=== PATIENT | male | born 1970 | race Caucasian/White ===

== ENCOUNTER 2024-07-22 10:56 | Outpatient (OUT) | payer OTHER, SELFPAY ==
[2024-07-22 11:08] LABS: Basophils Percent Auto 0.8 % (0.2-2.0); Eosinophils Absolute Auto 0.1 10^3/uL (0.0-0.7); Eosinophils Percent Auto 2.4 % (0.9-7.0); Hematocrit 43.8 % (42.0-54.0); Hemoglobin 15.2 g/dL (14.0-18.0); Immature Granulocytes Abs Auto 0.01 10^3/uL (0.00-0.03); Immature Granulocytes Pct Auto 0.2 % (0.0-0.5); Lymphocytes Absolute Auto 1.6 10^3/uL (1.2-3.8); Lymphocytes Percent Auto 30.6 % (20.5-60.0); Mean Corpuscular HGB Conc 34.7 g/dL (29.9-35.2); Mean Corpuscular Hemoglobin 32.1 pg (25.9-34.0); Mean Corpuscular Volume 92.4 fL (80.0-94.0); Mean Platelet Volume 8.8 fL (9.5-13.5); Monocytes Absolute Auto 0.5 10^3/uL (0.3-0.8); Monocytes Percent Auto 10.7 % (1.7-12.0); Neutrophils Absolute Auto 2.8 10^3/uL (1.4-6.5); Neutrophils Percent Auto 55.3 % (43.0-75.0); Platelet Count 307 10^3/uL (150-450); Red Blood Count 4.74 10^6/uL (4.70-6.10); Red Cell Distribution Width 12.2 % (11.0-15.0); White Blood Count 5.1 10^3/uL (4.0-11.0)
[2024-07-22 11:42] LABS: Alanine Aminotransferase 35 U/L (16-63); Albumin Globulin Ratio 1.3; Alkaline Phosphatase 59 U/L (46-116); Anion Gap 9.4; Aspartate Amino Transferase 20 U/L (15-37); BUN Creatinine Ratio 18.9; Carbon Dioxide 30.4 mmol/L (21.0-32.0); Chloride 101 mmol/L (98-107); Estimated GFR (African America >60 (>=60); Estimated GFR (Non-African Ame >60 (>=60); Globulin 3.2 g/dL; Glucose 107 mg/dL (74-106); Potassium 3.8 mmol/L (3.5-5.1); Sodium 137 mmol/L (136-145); Total Protein 7.2 g/dL (6.4-8.2)
== END 2024-07-22 10:57 | disposition home or self-care (01) ==
LOC: LAB 10:56
PROVIDERS: PCP Internal Medicine; Visit Provider Internal Medicine
DX: R53.83 Other fatigue (principal); R00.2 Palpitations; R42 Dizziness and giddiness
CPT/HCPCS: 36415; 80053; 84443; 85025

== ENCOUNTER 2024-07-27 12:30 | Outpatient (OUT) | payer OTHER, SELFPAY ==
--- NOTE | 2024-07-27 12:33 | CT_ITS ---
The [address] [address] Patient Name: DELTA HERNANDEZ MRN: [id number] date: 1970 Sex: M Assigned Patient Location: CT Current Patient Location: CT Accession/Order Number: [id number] Exam Date: 07/27/2024 12:35 Report Date: 07/27/2024 13:22 At the request of: BETTY MONTANA Procedure: CT head/brain wo con EXAM: CT head/brain wo con HISTORY: Pressure in head, Pre Syncope COMPARISON: None. TECHNIQUE: Axial soft tissue and bone windows through the calvarium with coronal and sagittal reformats. CT dose reduction technique was used including Automated Exposure Control. . Findings: The paranasal sinuses and mastoid air cells are well aerated. No air-fluid levels. No extra-axial fluid collection. No intra-axial or extra-axial bleed. No mass effect or midline shift. The escobar-white matter differentiation is preserved. The brain parenchymal volume is age appropriate. The ventricles are nondilated. The basal cisterns are patent. The craniovertebral junction is unremarkable. CT/CT head/brain wo con IMPRESSION: 1. No acute intracranial abnormality. Electronically authenticated by: CARY DE LEÓN Date: 07/27/2024 13:22
--- OUTSIDE RECORDS SUMMARY | 2024-07-27 12:35 | XMS_ITS | CCD ---
Author Organization [facility] Care Team Providers Care Ladies Locker Room Attendant Name Role Phone Cristhian Rivas Primary Care Provider ALMA ROBLES Referring Unavailable BALL, CRISTHIAN Allen Primary Care Unavailable OCTAVIANO, ALMA Referring Unavailable BALL, CRISTHIAN E Primary Care Unavailable OCTAVIANO, ALMA Referring Unavailable BALL, CRISTHIAN E Primary Care Unavailable BALL, CRISTHIAN E Primary Care Unavailable OCTAVIANO, ALMA Referring Unavailable BALL, CRISTHIAN E Primary Care Unavailable OCTAVIANO, ALMA Referring Unavailable BALL, CRISTHIAN Allen Primary Care Unavailable BALL, DR HERNÁNDEZ Admitting Unavailable BALL, DR HERNÁNDEZ Attending Unavailable BALL, DR HERNÁNDEZ Admitting Unavailable BALL, DR HERNÁNDEZ Attending Unavailable BALL, DR HERNÁNDEZ Consulting Unavailable NILL, DR TAYLOR Admitting Unavailable NILL, DR TAYLOR Attending Unavailable BALL, DR HERNÁNDEZ Primary Care Unavailable NILL, DR TAYLOR Consulting Unavailable NILL, DR TAYLOR Admitting Unavailable NILL, DR TAYLOR Attending Unavailable NILL, DR TAYLOR Admitting Unavailable NILL, DR TAYLOR Attending Unavailable BALL, DR HERNÁNDEZ Primary Care Unavailable NILL, DR TAYLOR Consulting Unavailable LONG, JOHN Consulting Unavailable Ball, Cristhian Unavailable Allergies Allergy Classification Reported Allergen(s) Allergy Type Date of Onset Reaction(s) Facility Opioid Agonists (3 sources) Codeine Drug Allergy 5 Other (See Comments) [facility] (9 sources) Codeine Drug Allergy 5 Other (See Comments) [facility] [place], [place] (2 sources) Codeine Drug Allergy [facility] Repository Medications Current Medications Medication Drug Class(es) Dates Sig (Normalized) Sig (Original) benzonatate 200 mg oral capsule (5 sources) Non-narcotic Antitussive Start: 11-13-2022 take 1 capsule by mouth every eight hours etodolac 500 mg oral tablet (4 sources) Nonsteroidal Anti-inflammatory Drug Start: 07-01-2023 take 1 tablet by mouth every twelve hours Etodolac 500 MG 1 tablet with food Orally Twice a day for 30 days Jun, Active valACYclovir 500 mg oral tablet (8 sources) Herpesvirus Nucleoside Analog DNA Polymerase Inhibitor, Herpes Simplex Virus Nucleoside Analog DNA Polymerase Inhibitor, Herpes Zoster Virus Nucleoside Analog DNA Polymerase Inhibitor Start: 02-26-2024 End: 06-29-2024 take 1 tablet by mouth once daily Valacyclovir Active 0 .ROUTE .COMPLEX June 29, 2024 11:19am Take 1 tablet by mouth once daily Start: 02-26-2024 End: 02-26-2024 take 500 mg by mouth once daily Valacyclovir Discontin ued 500 MG PO Daily February 26, 2024 12:00am February 26, 2024 4:49pm take 1 tablet by kelly once daily valACYclovir HCl 500 MG Take 1 tablet by mouth once daily Active {20 (nirmatrelvir 150 MG Ora l Tablet) / 10 (ritonavir 100 MG Oral Tablet) } Pack [Paxlovid 5-Day] (5 sources) Start: 11-13-2022 take 3 tablets by [facility] every twelve hours Completed/Discontinued Medications Medication Drug Class(es) Dates Sig (Normalized) Sig (Original) azithromycin 250 mg oral tablet (5 sources) Macrolide Antimicrobial Start: 02-11-2023 Azithromycin 250 MG as directed Orally daily for 5 days Jan, Not-Taking predniSONE 20 mg oral tablet (5 sources) Start: 02-11-2023 predniSONE 20 MG 1 tablet Orally tid w/ food x 3 days, then bid w/ food x 3 days, then qd w/ food x 3 days for 9 Jan, Not-Taking Problems Active Problems Problem Classification Problem Date Documented Da te Episodic/Chronic Abdominal hernia (9 sources) Unilateral inguinal hernia, without obstruction or gangrene, not specified as recurrent; Translations: [Inguinal hernia] Onset: 12-04-2021 Episodic Abdominal pain (5 sources) Left upper quadrant pain; Translations: [Left upper quadrant pain] Episodic Acute bronchitis (1 source) Acute bronchitis due to other specified organisms Episodic Administrative/social admission (6 sources) Patient encounter status; Translations: [Encounter for pre-employment examination] Episodic Allergic reactions (6 sources) Allergic contact dermatitis due to plants, except food; Translations: [Allergic contact dermatitis due to plants, except food] Episodic Cardiac dysrhythmias (1 source) Palpitations; Translations: [Palpitations] 07-21-2024 Episodic Conditions associated with dizziness or vertigo (1 source) Lightheadedness; Translations: [Dizziness and giddiness] 07-21-2024 Episodic Malaise and fatigue (1 source) Fatigue; Translations: [Other fatigue] 07-21-2024 Episodic Other ear and sense organ disorders (5 sources) Impacted cerumen; Translations: [Impacted cerumen, bilateral] Episodic Other nutritional; endocrine; and metabolic disorders (5 sources) Overweight; Translations: [Overweight] Episodic Other screening for suspected conditions (not mental disorders or infectious disease) (3 sources) Encounter for screening for malignant neoplasm of colon; Translations: [Special screening for malignant neoplasms of colon] Episodic Sprains and strains (2 sources) Sprain of right rotator cuff capsule, initial encounter Episodic Unclassified (4 sources) CONTACT W/AND (SUSP) EXPOS COVID-19; Translations: [CONTACT W/AND (SUSP) EXPOS COVID-19] Onset: 09-12-2021 Viral infection (7 sources) Herpes simplex type 2 infection; Translations: [Herpesviral infection, unspecified] Episodic Past or Other Problems Problem Classification Problem Date Documented Da te Episodic/Chronic Other and unspecified benign neoplasm (1 source) Benign lipomatous neoplasm of spermatic cord; 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] Onset: 12-11-2021 Episodic Unclassified (1 source) CONTACT W/AND (SUSP) EXPOS COVID-19; Translations: [CONTACT W/AND (SUSP) EXPOS COVID-19] Onset: 09-06-2021 Results Test Name Value Interpretation Reference Range Facility Basophils Auto (Bld) [#/Vol] on 07-22-2024 Basophils (Bld) [#/Vol] 0.0 10 3/uL 0.0-0.1 [facility] Basophils/100 WBC Auto (Bld) on 07-22-2024 Basophils/100 WBC (Bld) 0.8 % 0.2-2.0 [facility] Eosinophils/100 WBC Auto (Bl d)on 07-22-2024 Eosinophils/100 WBC (Bld) 2.4 % 0.9-7.0 [facility] Erythrocyte distribution wid th Auto (RBC) [Ratio]on 07-22-2024 Erythrocyte distribution width (RBC) [Ratio] 12.2 % 11.0-15.0 [facility] Estimated glomerular filtrat ion rate (GFR) non- Americanon 07-22-2024 GFR/1.73 sq M.predicted among non-blacks MDRD (S/P/Bld) [Vol rate/Area] mL/min/{1.73_m2} >=60 [facility] Globulin Calc (S) [Mass/Vol] on 07-22-2024 Globulin (S) [Mass/Vol] 3.2 g/dL [facility] Hematocrit Auto (Bld) [Volum e fraction]on 07-22-2024 Hematocrit (Bld) [Volume fraction] 43.8 % 42.0-54.0 [facility] Hemoglobin [Mass/volume] in Bloodon 07-22-2024 Hemoglobin (Bld) [Mass/Vol] 15.2 g/dL 14.0-18.0 [facility] Laboratory - Chemistry and C hemistry - challengeon 07-22-2024 Albumin [Mass/Vol] 4.0 g/dL 3.4-5.0 [facility] ALP [Catalytic activity/Vol] 59 U/L 46-116 [facility] ALT [Catalytic activity/Vol] 35 U/L 16-63 [facility] AST [Catalytic activity/Vol] 20 U/L 15-37 [facility] Bilirubin [Mass/Vol] 1.0 mg/dL 0.2-1.0 [facility] Calcium [Mass/Vol] 9.0 mg/dL 8.5-10.1 [facility] Chloride [Moles/Vol] 101 mmol/L 98-107 [facility] CO2 [Moles/Vol] 30.4 mmol/L 21.0-32.0 [facility] Creatinine [Mass/Vol] 0.95 mg/dL 0.70-1.30 [facility] GFR/1.73 sq M.predicted MDRD (S/P/Bld) [Vol rate/Area] mL/min/{1.73_m2} >=60 [facility] Glucose [Mass/Vol] 107 mg/dL High 74-106 [facility] Potassium [Moles/Vol] 3.8 mmol/L 3.5-5.1 [facility] Protein [Mass/Vol] 7.2 g/dL 6.4-8.2 [facility] Sodium [Moles/Vol] 137 mmol/L 136-145 [facility] TSH Qn 1.190 m[IU]/L 0.358-3.740 [facility] Urea nitrogen [Mass/Vol] 18.0 mg/dL 7.0-18.0 [facility] Urea nitrogen/Creatinine [Mass ratio] 18.9 mg/mg [facility] Laboratory - Hematology and Cell countson 07-22-2024 Immature granulocytes/100 WBC (Bld) 0.2 % 0.0-0.5 [facility] Leukocytes [#/volume] correc kimber for nucleated erythrocytes in Blood by Automated counon 07-22-2024 WBC corrected for nucl RBC Auto (Bld) [#/Vol] 5.1 10 3/uL 4.0-11.0 [facility] Lymphocytes Auto (Bld) [#/Vo l]on 07-22-2024 Lymphocytes (Bld) [#/Vol] 1.6 10 3/uL 1.2-3.8 [facility] Lymphocytes/100 WBC Auto (Bl d)on 07-22-2024 Lymphocytes/100 WBC (Bld) 30.6 % 20.5-60.0 [facility] MCH Auto (RBC) [Entitic mass ]on 07-22-2024 MCH (RBC) [Entitic mass] 32.1 pg 25.9-34.0 [facility] MCHC Auto (RBC) [Mass/Vol]on 07-22-2024 MCHC (RBC) [Mass/Vol] 34.7 g/dL 29.9-35.2 [facility] MCV Auto (RBC) [Entitic vol] on 07-22-2024 MCV (RBC) [Entitic vol] 92.4 fL 80.0-94.0 [facility] Monocytes Auto (Bld) [#/Vol] on 07-22-2024 Monocytes (Bld) [#/Vol] 0.5 10 3/uL 0.3-0.8 [facility] Monocytes/100 WBC Auto (Bld) on 07-22-2024 Monocytes/100 WBC (Bld) 10.7 % 1.7-12.0 [facility] Neutrophils Auto (Bld) [#/Vo l]on 07-22-2024 Neutrophils (Bld) [#/Vol] 2.8 10 3/uL 1.4-6.5 [facility] Neutrophils/100 WBC Auto (Bl d)on 07-22-2024 Neutrophils/100 WBC (Bld) 55.3 % 43.0-75.0 [facility] No Panel Informationon 07-22 Eosinophils # (Auto) 0.1 10 3/uL 0.0-0.7 [facility] Immature Granulocyte # (Auto) 0.01 10 3/uL 0.00-0.03 [facility] Platelet mean volume Auto (B ld) [Entitic vol]on 07-22-2024 Platelet mean volume (Bld) [Entitic vol] 8.8 fL Low 9.5-13.5 [facility] Platelets Auto (Bld) [#/Vol] on 07-22-2024 Platelets (Bld) [#/Vol] 307 10 3/uL 150-450 [facility] RBC Auto (Bld) [#/Vol]on RBC (Bld) [#/Vol] 4.74 10 6/uL 4.70-6.10 [facility] Serum or plasma albumin/glob ulin mass ratioon 07-22-2024 Albumin/Globulin [Mass ratio] 1.3 {ratio} [facility] Serum or plasma anion gap de terminationon 07-22-2024 Anion gap [Moles/Vol] 9.4 mmol/L [facility] Physician Referralon 023 Physician Referral [id number]: 127 Normal [facility] Lipid Profileon 02-11-2022 Cholesterol [Mass/Vol] 181 mg/dL Normal <200 [facility] Comment on above: Result Comment: Cholesterol Guidelines: <200 Desirable 200-240 Borderline >240 Undesirable Performed By: #### C BC, CP, OBN #### [facility] [address] [place] [address] [place] [address] [employer]: Eddie Jones MD #### PSAS, LIPR #### [id number] [place] [address] [employer] Operator: Josh Brown MD Cholesterol in HDL [Mass/Vol] 77 mg/dL Normal >40 [facility] Comment on above: Result Comment: HDL Guidelines: <40 Undesirable 40-59 Borderline >59 Desirable Performed By: #### Juli oCesar MILES CP, OBN #### [facility] [address] [place] [address] [place] [address] [employer] Operator: Eddie Jones MD #### PSAMinerva, LIPR #### [address] [address] [employer] Operator: Josh Brown MD Cholesterol in LDL [Mass/Vol] 96 mg/dL Normal 0-130 [facility] Comment on above: Result Comment: LDL Guidelines: <100 Desirable 100-129 Near to/above Desirable 130-159 Borderline >159 Undesirable Direct (measured) LDL and calculated LDL are not interchangeable tests. Performed By: #### Julio Cesar MILES CP, OBN #### [address] [place] [address] [employer] Operator: Eddie Jones MD #### PSAMinerva, LIPR #### [address] [address] [employer] Operator: Josh Brown MD Cholesterol.total/Ch olesterol in HDL [Mass ratio] 2.4 {ratio} Normal <5 [facility] Comment on above: Performed By: #### Julio Cesar MILES CP, OBN #### [address] [place], [place] [phone] [employer] Operator: Eddie Jones MD #### PSAMinerva, LIPR #### [address] [id number] [employer] Operator: Josh Brown MD Triglyceride [Mass/Vol] 42 mg/dL Normal <150 [facility] Comment on above: Result Comment: Triglyceride Guidelines: <150 Desirable 150-199 Borderline 200-499 High >499 Very high Based on AHA Guidelines for fasting triglyceride, July 2012. Performed By: #### Julio Cesar MILES CP, OBN #### [facility] [address] [place] [address] [address] [place], [place] [phone] [employer] Operator: Eddie Jones MD #### PSAS, LIPR #### [facility] [place], [place] [phone] [employer] Operator: Josh Brown MD PSA, Screeningon 02-11-2022 Prostatic Spec. Ag 0.65 ug/L Normal <4.1 [facility] Comment on above: Result Comment: The [employer] ECLIA assay is used. Results obtained with different assay methods cannot be used interchangeably. Performed By: #### Julio Cesar MILES CP, OBN #### [address] [place] [place] [address] [employer] Operator: Eddie Jones MD #### PSAMinerva, LIPR #### [facility] [place] [address] [employer] Operator: Josh Brown MD CBCon 02-10-2022 Erythrocyte distribution width (RBC) [Ratio] 12.8 % Normal 11.8-14.4 [facility] Comment on above: Performed By: #### Julio Cesar MIELS CP, OBN #### [facility] [address] [place] [address] [place], [place] [phone] [employer] Operator: Eddie Jones MD #### PSAS, LIPR #### [facility] [place] [address] [employer] Operator: Josh Brown MD Hematocrit (Bld) [Volume fraction] 45.3 % Normal 40.7-50.3 [facility] Comment on above: Performed By: #### C BC, CP, OBN #### [address] [place], [place] [phone] [employer] Operator: Eddie Jones MD #### PSAS, LIPR #### [address] [phone] [employer] Operator: Josh Brown MD Hemoglobin (Bld) [Mass/Vol] 15.0 g/dL Normal 13.0-17.0 [facility] Comment on above: Performed By: #### C GINGER CP, OBN #### [address] [place] [address] [employer] Operator: Eddie Jones MD #### PSAMinerva, LIPR #### [address] [id number] [employer] Operator: Josh Brown MD MCH (RBC) [Entitic mass] 31.2 pg Normal 25.2-33.5 [facility] Comment on above: Performed By: #### C MADDIE MILES, OBN #### [address] [place] [address] [employer] Operator: Eddie Jones MD #### PSAMinerva, LIPR #### [address] [phone] [employer] Operator: Josh Brown MD MCHC (RBC) [Mass/Vol] 33.1 g/dL Normal 28.4-34.8 [facility] Comment on above: Performed By: #### C MADDIE MILES, OBN #### [address] [place] [address] [employer] Operator: Eddie Jones MD #### PSAS, LIPR #### [address] [place], [place] [phone] [employer] Operator: Josh Brown MD MCV (RBC) [Entitic vol] 94.2 fL Normal 82.6-102.9 [facility] Comment on above: Performed By: #### C BC, CP, OBN #### [facility] [address] [place] [id number] [employer] Operator: Eddie Jones MD #### PSAS, LIPR #### [address] [address] [employer] Operator: Josh Brown MD NRBC Automated 0.0 per 100 WBC Normal 0.0 [facility] Comment on above: Performed By: #### C GINGER, CP, OBN #### [address] [place] [id number] [employer] Operator: Eddie Jones MD #### PSAS, LIPR #### [address] [phone] [employer] Operator: Josh Brown MD Platelet mean volume (Bld) [Entitic vol] 9.4 fL Normal 8.1-13.5 [facility] Comment on above: Performed By: #### C GINGER CP, OBN #### [address] [place] [id number] [employer] Operator: Eddie Jones MD #### PSAS, LIPR #### [address] [phone] [employer] Operator: Josh Brown MD Platelets (Bld) [#/Vol] 309 10*3/uL Normal 138-453 [facility] Comment on above: Performed By: #### C GINGER CP, OBN #### [facility] [address] [place] [address] [address], [place] [phone] [employer] Operator: Eddie Jones MD #### PSAS, LIPR #### [address] [address] [employer] Operator: Josh Brown MD RBC (Bld) [#/Vol] 4.81 10*6/uL Normal 4.21-5.77 [facility] Comment on above: Performed By: #### C MADDIE MILES, OBN #### [address] [place] [address] [employer] Operator: Eddie Jones MD #### OSWALDO, LIPR #### [address] [place], [place] [phone] [employer] Operator: Josh Brown MD WBC (Bld) [#/Vol] 4.4 10*3/uL Normal 3.5-11.3 [facility] Comment on above: Performed By: #### C MADDIE MILES, OBN #### [address] [place] [address] [employer] Operator: Eddie Jones MD #### OSWALDO, LIPR #### [address] [place], [place] [phone] [employer] Operator: Josh Brown MD Comp Metabolic Profon 2021 (cont.) [facility] Comment on above: Result Comment: Aver age GFR for 40-49 years old: 99 mL/min/1.73sq m Chronic Kidney Disease: <60 mL/min/1.73sq m Kidney failure: <15 mL/min/1.73sq m eGFR calculated using average adult body mass. Additional eGFR calculator available at: http://[email or web address]_crcl_[email or web address].htm Performed By: #### C MADDIE MILES, OBN #### [address] [place] [address] [employer] Operator: Eddie Jones MD #### PSAMinerva, LIPR #### [facility] [address] [place], [place] [phone] [employer] Operator: Josh Brown MD Albumin [Mass/Vol] 4.8 g/dL Normal 3.5-5.2 [facility] Comment on above: Performed By: #### C MADDIE MILES, OBN #### [facility] [address] [place], [place] [phone] [employer] Operator: Eddie Jones MD #### PSAMinerva, LIPR #### [address] [place], [place] [phone] [employer] Operator: Josh Brown MD Albumin/Glob Ratio 1.8 Normal 1.0-2.5 [facility] Comment on above: Performed By: #### C MADDIE MILES, OBN #### [facility] [address] [place], [place] [phone] [employer] Operator: Eddie Jones MD #### OSWALDO, LIPR #### [address] [phone] [employer] Operator: Josh Brown MD Alkaline Phos 67 U/L Normal 40-129 [facility] Comment on above: Performed By: #### Julio Cesar MILES CP, OBN #### [facility] [address] [place], [place] 255[address] [employer] Operator: Eddie Jones MD #### OSWALDO, LIPR #### [address] [address] [employer] Operator: Josh Brown MD ALT [Catalytic activity/Vol] 24 U/L Normal 5-41 [facility] Comment on above: Performed By: #### Julio Cesar MILES CP, OBN #### [facility] [address] [place], [place] [phone] [employer] Operator: Eddie Jones MD #### PSAS, LIPR #### [address] [place] [address] [employer] Operator: Josh Brown MD Anion gap [Moles/Vol] 9 mmol/L Normal 9-17 [facility] Comment on above: Performed By: #### Julio Cesar MILES CP, OBN #### [facility] [address] [place], [place] [address] [employer] Operator: Eddie Jones MD #### PSAMinerva, LIPR #### [address] [phone] [employer] Operator: Josh Brown MD AST [Catalytic activity/Vol] 22 U/L Normal <40 [facility] Comment on above: Performed By: #### Julio Cesar MILES CP, OBN #### [facility] [address] [place], [place] 567[address]83 [employer] Operator: Eddie Jones MD #### OSWALDO, LIPR #### [address] [place], [place] 6628[address] [employer] Operator: Josh Brown MD Bilirubin [Mass/Vol] 0.41 mg/dL Normal 0.3-1.2 [facility] Comment on above: Performed By: #### Julio Cesar MILES CP, OBN #### [address] [place], [place] [phone] [employer] Operator: Eddie Jones MD #### OSWALDO, LIPR #### [address] [address] [employer] Operator: Josh Brown MD BUN/CRE Ratio 13 Normal 9-20 [facility] Comment on above: Performed By: #### Julio Cesar MILES CP, OBN #### [facility] [address] [place] [address] [address] [place], [place] [phone] [employer] Operator: Eddie Jones MD #### PSAS, LIPR #### [address] [address] [employer] Operator: Josh Brown MD Calcium [Mass/Vol] 9.5 mg/dL Normal 8.6-10.4 [facility] Comment on above: Performed By: #### Julio Cesar MILES CP, OBN #### [facility] [address] [place] [address] [place] [address] [employer] Operator: Eddie Jones MD #### PSAS, LIPR #### [address] [place], [place] [phone] [employer] Operator: Josh Brown MD Chloride [Moles/Vol] 100 mmol/L Normal 98-107 [facility] Comment on above: Performed By: #### C MADDIE MILES, OBN #### [facility] [address] [place] [address] [place] [address] [employer] Operator: Eddie Jones MD #### PSAS, LIPR #### [address] [phone] [employer] Operator: Josh Brown MD CO2 [Moles/Vol] 29 mmol/L Normal 20-31 [facility] Comment on above: Performed By: #### Julio Cesar IMLES CP, OBN #### [facility] [address] [place] [address] [place] [phone] [employer] Operator: Eddie Jones MD #### PSAS, LIPR #### [address] [phone] [employer] Operator: Josh Brown MD Creatinine [Mass/Vol] 0.90 mg/dL Normal 0.70-1.20 [facility] Comment on above: Performed By: #### Julio Cesar MILES CP, OBN #### [facility] [address] [place] [address] [place] [address] [employer] Operator: Eddie Jones MD #### PSAS, LIPR #### [address] [phone] [employer] Operator: Josh Brown MD GFR, Amer >60 Normal >60 [facility] Comment on above: Performed By: #### C GINGER CP, OBN #### [facility] [address] [place] [address] [place] [address] [employer] Operator: Eddie Jones MD #### PSAS, LIPR #### [facility] [address] [place], [place] [phone] [employer] Operator: Josh Brown MD GFR,non Amer >60 Normal >60 [facility] Comment on above: Performed By: #### C BC, CP, OBN #### [facility] [address] [place] [address] [place] [address] [employer] Operator: Eddie Jones MD #### PSAS, LIPR #### [address] [place], [place] [phone] [employer] Operator: Josh Brown MD Glucose [Mass/Vol] 97 mg/dL Normal 70-99 [facility] Comment on above: Performed By: #### C BC, CP, OBN #### [address] [place] [id number] [employer] Operator: Eddie Jones MD #### PSAS, LIPR #### [address] [phone] [employer] Operator: Josh Brown MD Potassium [Moles/Vol] 4.4 mmol/L Normal 3.7-5.3 [facility] Comment on above: Performed By: #### C BC, CP, OBN #### [address] [place] [address] [employer]: Eddie Jones MD #### PSAS, LIPR #### [address] [place], [place] [id number] [employer]: Josh Brown MD Protein [Mass/Vol] 7.5 g/dL Normal 6.4-8.3 [facility] Comment on above: Performed By: #### C BC, CP, OBN #### [facility] [address] [place] [address] [place] [address] [employer] Operator: Eddie Jones MD #### PSAS, LIPR #### [address] [place], [place] [id number] [employer] Operator: Josh Brown MD Sodium [Moles/Vol] 138 mmol/L Normal 135-144 [facility] Comment on above: Performed By: #### C MADDIE MILES, OBN #### [address] [place] [address] [employer] Operator: Eddie Jones MD #### PSAS, LIPR #### [address] [id number] [employer] Operator: Josh Brown MD Staging: Normal [facility] Comment on above: Result Comment: Stag e 1: Some kidney damage normal GFR Stage 2: Mild kidney damage GFR 60-89 Stage 3: Moderate kidney damage GFR 30-59 Stage 4: Severe kidney damage GFR 15-29 Stage 5: Severe kidney damage GFR <15 ESRD - chronic treatment by dialysis or transplant Performed By: #### Julio Cesar MILES CP, OBN #### [address] [place] [address] [employer] Operator: Eddie Jones MD #### PSAS, LIPR #### [address] [id number] [employer] Operator: Josh Brown MD Urea nitrogen [Mass/Vol] 12 mg/dL Normal 6-20 [facility] Comment on above: Performed By: #### C MADDIE MILES, OBN #### [address] [place] [address] [employer] Operator: Eddie Jones MD #### PSAS, LIPR #### [address] [id number] [employer] Operator: Josh Brown MD EKG 12 LeadOrdered By: Arthur Raines on 02-10-2022 Atrial Rate 56 BPM [facility] Work Phone: P [place] 61 degrees [employer] Work Phone: P-R Interval 154 ms [employer] Work Phone: Q-T Interval 452 ms [employer] Work Phone: QRS Duration 100 ms [employer] Work Phone: QTc Calculation (Bazett) 436 ms [employer] Work Phone: R [place] 39 degrees [employer] Work Phone: T [place] 37 degrees [employer] Work Phone: Ventricular Rate 56 BPM [employer] Work Phone: [employer] Work Phone: EKG 12 Leadon 02-10-2022 Sinus bradycardia Possible Left atrial enlargement Borderline ECG When compared with ECG of 14-MAR-2021 08:48, No significant change was found Confirmed by JADON RAINES ([id number]) on 02/10/2022 12:59:34 PM [facility] Jadon Raines MD - 02/10/2022 Sinus bradycardia Possible Left atrial enlargement Borderline ECG When compared with ECG of 14-MAR-2021 08:48, No significant change was found Confirmed by JADON RAINES ([id number]) on 02/10/2022 12:59:34 PM [employer] Work Phone: Occult Blood, Fecalon 2021 Occult Blood 1 Negative Normal NEG [facility] in Hospital Comment on above: Performed By: #### C MADDIE MILES, OBN #### [facility] [address] [place] [address] [employer] Operator: Eddie Jones MD #### PSAMinerva, LIPR #### [address] [place] [address] [employer] Operator: Josh Brown MD Specimen 1 Date HIDE Normal [facility] Comment on above: Performed By: #### C MADDIE MILES, OBN #### [facility] [address] [place], [place] 4475[address] [employer] Operator: Eddie Jones MD #### PSAMinerva, LIPR #### [facility] [address] [place], [place] [phone] [employer] Operator: Josh Brown MD Specimen 1 Time 0815 Normal [facility] Comment on above: Performed By: #### C MADDIE MILES, OBN #### [facility] [address] [place], [place] 5450983 [employer] Operator: Eddie Jones MD #### OSWALDO, LIPR #### [facility] [address] [place], [place] [phone] [employer] Operator: Josh Brown MD Covid-19 PCR (CVDTBH)on SARS-CoV-2 (COVID-19) RNA NEW+probe Ql (Unsp spec) Not detected Normal NOT DETECTED [facility] Comment on above: Result Comment: This test is not yet approved or cleared by the [place] FDA. When there are no FDA-approved or cleared tests available, and other criteria are met, FDA can make tests available under an emergency access mechanism called an Emergency Use Authorization (EUA). The EUA for this test is supported by the [place] of Health and Human Service's (HHS's) declaration that circumstances exist to justify the emergency use of in vitro diagnostics for the detection and/or diagnosis of the virus that causes COVID-19. This EUA will remain in effect (meaning this test can be used) for the duration of the COVID-19 declaration justifying emergency of IVDs, unless it is terminated or revoked by FDA (after which the test may no longer be used). When diagnostic testing is negative, the possibility of a false negative should be considered in the context of a patient's recent exposures and the presence of clinical signs and symptoms consistent with SARS-CoV-2. Performed By: #### C VDTBH #### [facility] [address] [place], [place] [address] Dr. Rebeka Zeng Covid-19 PCR (CVDTBH)on 08-26 SARS-CoV-2 (COVID-19) RNA NEW+probe Ql (Unsp spec) Not detected Normal NOT DETECTED [facility] Comment on above: Result Comment: This test is not yet approved or cleared by the [place] FDA. When there are no FDA-approved or cleared tests available, and other criteria are met, FDA can make tests available under an emergency access mechanism called an Emergency Use Authorization (EUA). The EUA for this test is supported by the [employer] of Health and Human Service's (HHS's) declaration that circumstances exist to justify the emergency use of in vitro diagnostics for the detection and/or diagnosis of the virus that causes COVID-19. This EUA will remain in effect (meaning this test can be used) for the duration of the COVID-19 declaration justifying emergency of IVDs, unless it is terminated or revoked by FDA (after which the test may no longer be used). When diagnostic testing is negative, the possibility of a false negative should be considered in the context of a patient's recent exposures and the presence of clinical signs and symptoms consistent with SARS-CoV-2. Performed By: #### C [facility] #### [facility] [address] [place] [address] Dr. Rebeka Zeng CARDIAC STRESS TESTon 2020 CARDIAC STRESS TEST [place] [id number] CARDIAC STRESS TEST PATIENT NAME: DELTA HERNANDEZ : 1970 MED REC NO: [id number] ROOM: ACCOUNT NO: [id number] ADMIT DATE: 04/10/2021 PROVIDER: Nicolás Hernandez CARDIOVASCULAR DIAGNOSTIC DEPARTMENT DATE OF STUDY: 04/10/2021 ORDERING PROVIDER: Alma Robles CNP PRIMARY CARE PROVIDER: Cristhian Rivas DO INTERPRETING PHYSICIAN: Nicolás Hernandez MD EXERCISE STRESS TEST REPORT Stress, exercise stress. INDICATIONS: Evaluation for employment. CLINICAL HISTORY: The patient is a 51-year-old man with no known coronary artery disease. Previous cardiac history includes: Stress test. Other previous history includes: None. Symptoms just prior to testing include: None. Relevant medications: None. PROCEDURE: The patient performed treadmill exercise using a Miguelito protocol, completing 12:38 minutes and completing an estimated workload of 14.50 metabolic equivalents (METS). The test was terminated due to fatigue and knee and foot pain. The heart rate was 61 beats per minute at baseline and increased to 160 beats at peak exercise, which was 93% of the maximum predicted heart rate. The rest blood pressure was 120/70 mm/Hg and increased to 174/60 mm/Hg, which is a normal response. During the procedure, the patient developed fatigue and leg fatigue, but denied chest discomfort. STRESS ECG RESULTS: The resting electrocardiogram demonstrated normal sinus rhythm without definitive ST-segment abnormalities suggestive of myocardial ischemia. At peak exercise and during recovery, the patient developed: No significant ST segment changes suggestive of myocardial ischemia with no premature atrial contractions (PACs) and no premature ventricular contractions (PVCs). IMPRESSION: No significant electrocardiographic evidence of myocardial ischemia during EKG monitoring without significant associated arrhythmias. The patient's Driver Treadmill score is 12 which correlates with a low risk for significant coronary artery disease. NICOLÁS HERNANDEZ BRE/JASWINDER_JASPER Doc#: Unknown CC: Cristhian Robles Normal [facility] Lipid Prof, Fastingon 2020 Cholesterol [Mass/Vol] 193 mg/dL Normal <200 [facility] Comment on above: Result Comment: Cholesterol Guidelines: <200 Desirable 200-240 Borderline >240 Undesirable Performed By: #### C BC, OBN, CP #### [facility] [address] [place] [address] [employer] Operator: Eddie Jones MD #### PSAS, LIPRF #### [facility] [employer] [address] [place] [address] [employer] Operator: Josh Brown MD Cholesterol in HDL [Mass/Vol] 90 mg/dL Normal >40 [facility] Comment on above: Result Comment: HDL Guidelines: <40 Undesirable 40-59 Borderline >59 Desirable Performed By: #### C BC, OBN, CP #### [facility] [address] [place] [address] [employer] Operator: Eddie Jones MD #### PSAS, LIPRF #### [address] [place] [address] [employer] Operator: Josh Brown MD Cholesterol in LDL [Mass/Vol] 97 mg/dL Normal 0-130 [facility] Comment on above: Result Comment: LDL Guidelines: <100 Desirable 100-129 Near to/above Desirable 130-159 Borderline >159 Undesirable Direct (measured) LDL and calculated LDL are not interchangeable tests. Performed By: #### C GINGER OBN, CP #### [facility] [address] [place], [place] 659[address]83 [employer] Operator: Eddie Jones MD #### PSAMinerva, LIPRF #### [address] [address] [employer] Operator: Josh Brown MD Cholesterol.total/Ch olesterol in HDL [Mass ratio] 2.1 {ratio} Normal <5 [facility] Comment on above: Performed By: #### C GINGER OBTiburcio, CP #### [facility] [address] [place], [place] [phone] [employer] Operator: Eddie Jones MD #### PSAS, LIPRF #### [address] [address] [employer] Operator: Josh Brown MD Triglyceride,Fasting 31 mg/dL Normal <150 [facility] Comment on above: Result Comment: Triglyceride Guidelines: <150 Desirable 150-199 Borderline 200-499 High >499 Very high Based on AHA Guidelines for fasting triglyceride, July 2012. Performed By: #### C GINGER OBN, CP #### [facility] [address] [place] [address] [employer] Operator: Eddie Jones MD #### PSAS, LIPRF #### [address] [id number] [employer] Operator: Josh Brown MD PSA, Screeningon 03-15-2021 Prostatic Spec. Ag 0.57 ug/L Normal <4.1 [facility] Comment on above: Result Comment: The Marybeth ECLIA assay is used. Results obtained with different assay methods cannot be used interchangeably. Performed By: #### C GINGER, OBN, CP #### [facility] [address] [place] [address] [employer] Operator: Eddie Jones MD #### PSAS, LIPRF #### [address] [place], [place] [phone] [employer] Operator: Josh Brown MD Blood Occult Stool Screen #1 Ordered By: Alma Robles on 03-14-2021 Date, Stool #1 03/14/21 [facility] Work Phone: Date, Stool #2 NOT REPORTED [facility] Work Phone: Date, Stool #3 NOT REPORTED [facility] Work Phone: Hemoglobin.gastroint estinal spec 1 Ql (Stl) Negative NEGATIVE [facility] Work Phone: Hemoglobin.gastroint estinal spec 2 Ql (Stl) NOT REPORTED NEGATIVE [facility] Work Phone: Hemoglobin.gastroint estinal spec 3 Ql (Stl) NOT REPORTED NEGATIVE [facility] Work Phone: Time, Stool #[address] [facility] Work Phone: Time, Stool #2 NOT REPORTED [facility] Work Phone: Time, Stool #3 NOT REPORTED [facility] Work Phone: [facility] Work Phone: CBCon 03-14-2021 Erythrocyte distribution width (RBC) [Ratio] 12.6 % Normal 11.8-14.4 [facility] Comment on above: Performed By: #### C GINGER, OBN, CP #### [facility] [address] [place] [address] [employer] Operator: Eddie Jones MD #### PSAMinerva, LIPRF #### [address] [id number] [employer] Operator: Josh Brown MD Hematocrit (Bld) [Volume fraction] 46.6 % Normal 40.7-50.3 [facility] Comment on above: Performed By: #### C GINGER OBTiburcio, CP #### [address] [place] [address] [employer] Operator: Eddie Jones MD #### OSWALDO, LIPRF #### [address] [id number] [employer] Operator: Josh Brown MD Hemoglobin (Bld) [Mass/Vol] 15.6 g/dL Normal 13.0-17.0 [facility] Comment on above: Performed By: #### VALERY COPELAND, CP #### [address] [place] [address] [employer] Operator: Eddie Jones MD #### OSWALDO, LIPRF #### [address] [phone] [employer] Operator: Josh Brown MD MCH (RBC) [Entitic mass] 31.5 pg Normal 25.2-33.5 [facility] Comment on above: Performed By: #### C GINGER OBTiburcio, CP #### [address] [place] [address] [employer] Operator: Eddie Jones MD #### OSWALDO, LIPRF #### [address] [phone] [employer] Operator: Josh Brown MD MCHC (RBC) [Mass/Vol] 33.5 g/dL Normal 28.4-34.8 [facility] Comment on above: Performed By: #### VALERY COPELAND, CP #### [facility] [address] [place], [place] 8[address] [employer] Operator: Eddie Jones MD #### OSWALDO, LIPRF #### [address] 1864[address] [employer] Operator: Josh Brown MD MCV (RBC) [Entitic vol] 94.0 fL Normal 82.6-102.9 [facility] Comment on above: Performed By: #### C GINGER OBN, CP #### [facility] [address] [place], [place] [address] [employer] Operator: Eddie Jones MD #### OSWALDO, LIPRF #### [address] [phone] [employer] Operator: Josh Brown MD NRBC Automated 0.0 per 100 WBC Normal 0.0 [facility] Comment on above: Performed By: #### C GINGER OBTiburcio, CP #### [facility] [address] [place] [address] [place], [place] 1052983 [employer] Operator: Eddie Jones MD #### OSWALDO, LIPRF #### [address] [phone] [employer] Operator: Josh Brown MD Platelet mean volume (Bld) [Entitic vol] 9.3 fL Normal 8.1-13.5 [facility] Comment on above: Performed By: #### C GINGER, OBN, CP #### [facility] [address] [place] [address] [place], [place] [phone] [employer] Operator: Edide Jones MD #### PSAMinerva, LIPRF #### [address] [phone] [employer] Operator: Josh Brown MD Platelets (Bld) [#/Vol] 366 10*3/uL Normal 138-453 [facility] Comment on above: Performed By: #### C GINGER OBN, CP #### [facility] [address] [place] [address] [employer] Operator: Eddie Jones MD #### PSAS, LIPRF #### [address] [place], [place] [phone] [employer] Operator: Josh Brown MD RBC (Bld) [#/Vol] 4.96 10*6/uL Normal 4.21-5.77 [facility] Comment on above: Performed By: #### C GINGER OBN, CP #### [facility] [address] [place] [address] [employer] Operator: Eddie Jones MD #### PSAS, LIPRF #### [address] [place], [place] 5364108 [employer] Operator: Josh Brown MD WBC (Bld) [#/Vol] 5.4 10*3/uL Normal 3.5-11.3 [facility] Comment on above: Performed By: #### C GINGER OBN, CP #### [address] [place] [address] [employer] Operator: Eddie Jones MD #### PSAS, LIPRF #### [address] [place], [place] 1523008 [employer] Operator: Josh Brown MD CBCOrdered By: Alma robertson on 03-14-2021 Hematocrit (Bld) [Volume fraction] 46.6 % 40.7 - 50.3 % [facility] [email or web address] Phone: Hemoglobin.gastroint estinal spec 1 Ql (Stl) 15.6 g/dL 13.0 - 17.0 g/dL [facility] Phone: MCH (RBC) [Entitic mass] 31.5 pg 25.2 - 33.5 pg [facility] Work Phone: MCHC (RBC) [Mass/Vol] 33.5 g/dL 28.4 - 34.8 g/dL [facility] Phone: MCV (RBC) [Entitic vol] 94.0 fL 82.6 - 102.9 fL [employer] Phone: NRBC Automated 0.0 0.0 per 100 WBC [employer] Phone: Platelet distribution width (Bld) [Ratio] 12.6 % 11.8 - 14.4 % [employer] Phone: Platelet mean volume (Bld) [Entitic vol] 9.3 fL 8.1 - 13.5 fL [employer] Phone: Platelets (Bld) [#/Vol] 366 10*3/uL [facility] Phone: RBC (Bld) [#/Vol] 4.96 10*6/uL 4.21 - 5.7 7 m/uL [employer] Phone: WBC (Bld) [#/Vol] 5.4 10*3/uL [facility] Phone: [employer] Phone: Comp Metabolic Profon 2020 (cont.) Normal [facility] Comment on above: Result Comment: Aver age GFR for 40-49 years old: 99 mL/min/1.73sq m Chronic Kidney Disease: <60 mL/min/1.73sq m Kidney failure: <15 mL/min/1.73sq m eGFR calculated using average adult body mass. Additional eGFR calculator available at: http://[email or web address]/multiple_crcl_2011.htm Performed By: #### C BC, OBN, CP #### [facility] [address] [place] [address] [employer] Operator: Eddie Jones MD #### CARRIE CHACON #### [facility] [address] [place] [address] [employer] Operator: Josh Brown MD Albumin [Mass/Vol] 4.8 g/dL Normal 3.5-5.2 [facility] Comment on above: Performed By: #### C GINGER OBN, CP #### [facility] [address] [place], [place] [phone] [employer] Operator: Eddie Jones MD #### PSAS, LIPRF #### [address] [address] [employer] Operator: Josh Brown MD Albumin/Glob Ratio 1.7 Normal 1.0-2.5 [facility] Comment on above: Performed By: #### C GINGER OBTiburcio, CP #### [facility] [address] [place], [place] [phone] [employer] Operator: Eddie Jones MD #### PSAMienrva, LIPRF #### [address] [address] [employer] Operator: Josh Brown MD Alkaline Phos 67 U/L Normal 40-129 [facility] Comment on above: Performed By: #### C VALERY MILES, CP #### [facility] [address] [place] [address] [place] [address] [employer] Operator: Eddie Jones MD #### OSWALDO, LIPRF #### [address] [address] [employer] Operator: Josh Brown MD ALT [Catalytic activity/Vol] 29 U/L Normal 5-41 [facility] Comment on above: Performed By: #### C GINGER OBTiburcio, CP #### [facility] [address] [place] [address] [employer] Operator: Eddie Jones MD #### PSAS, LIPRF #### [facility] [address] [place] [address] [employer] Operator: Josh Brown MD Anion gap [Moles/Vol] 11 mmol/L Normal 9-17 [facility] Comment on above: Performed By: #### C VALERY MILES, CP #### [facility] [address] [place], [place] [phone] [employer] Operator: Eddie Jones MD #### PSAMinerva, LIPRF #### [address] [address] [employer] Operator: Josh Brown MD AST [Catalytic activity/Vol] 35 U/L Normal <40 [facility] Comment on above: Performed By: #### C VALERY MILES, CP #### [facility] [address] [place], [place] 2662383 [employer] Operator: Eddie Jones MD #### OSWALDO, LIPRF #### [address] [address] [employer] Operator: Josh Brown MD Bilirubin [Mass/Vol] 1.27 mg/dL High 0.3-1.2 [facility] Comment on above: Performed By: #### VALERY COPELAND, CP #### [facility] [address] [place], [place] 6044383 [employer] Operator: Eddie Jones MD #### OSWALDO, LIPRF #### [address] [address] [employer] Operator: Josh Brown MD BUN/CRE Ratio 27 High 9-20 [facility] Comment on above: Performed By: #### C VALERY MILES, CP #### [facility] [address] [place], [place] 2034683 [employer] Operator: Eddie Jones MD #### PSAS, LIPRF #### [address] [address] [employer] Operator: Josh Brown MD Calcium [Mass/Vol] 9.6 mg/dL Normal 8.6-10.4 [facility] Comment on above: Performed By: #### C GINGER OBN, CP #### [facility] [address] [place], [place] 5571783 [employer] Operator: Eddie Jones MD #### PSAS, LIPRF #### [address] [id number] [employer] Operator: Josh Brown MD Chloride [Moles/Vol] 100 mmol/L Normal 98-107 [facility] Comment on above: Performed By: #### C GINGER OBN, CP #### [facility] [address] [place] [address] [address]. [place], [place] 4951783 [employer] Operator: Eddie Jones MD #### PSAS, LIPRF #### [address] [id number] [employer] Operator: Josh Brown MD CO2 [Moles/Vol] 26 mmol/L Normal 20-31 [facility] Comment on above: Performed By: #### C GINGER OBTiburcio, CP #### [facility] [address] [place] [address] [address]. [place], [place] 0898083 [employer] Operator: Eddie Jones MD #### PSAS, LIPRF #### [address] [phone] [employer] Operator: Josh Brown MD Creatinine [Mass/Vol] 0.89 mg/dL Normal 0.70-1.20 [facility] Comment on above: Performed By: #### C VALERY MILES, CP #### [facility] [address] [place] [address] [employer] Operator: Eddie Jones MD #### PSAS, LIPRF #### [address] [address] [employer]: Josh Brown MD GFR, Amer >60 Normal >60 [facility] Comment on above: Performed By: #### C BC, OBN, CP #### [facility] [address] [place] [address] [employer] Operator: Eddie Jones MD #### PSAS, LIPRF #### [address] [place], [place] [phone] [employer] Operator: Josh Brown MD GFR,non Amer >60 Normal >60 [facility] Comment on above: Performed By: #### C BC, OBN, CP #### [facility] [address] [place] [address] [employer] Operator: Eddie Jones MD #### PSAS, LIPRF #### [address] [phone] [employer]: Josh Brown MD Glucose [Mass/Vol] 92 mg/dL Normal 70-99 [facility] Comment on above: Performed By: #### C BC, OBN, CP #### [facility] [address] [place] [address] [employer] Operator: Eddie Jones MD #### PSAS, LIPRF #### [address] [phone] [employer]: Josh Brown MD Potassium [Moles/Vol] 4.1 mmol/L Normal 3.7-5.3 [facility] Comment on above: Performed By: #### C BC, OBN, CP #### [facility] [address] [place] [address] [employer]: Eddie Jones MD #### PSAS, LIPRF #### [address] [id number] [employer] Operator: Josh Brown MD Protein [Mass/Vol] 7.6 g/dL Normal 6.4-8.3 [facility] Comment on above: Performed By: #### C GINGER OBTiburcio, CP #### [facility] [address] [place], [place] [id number] [employer] Operator: Eddie Jones MD #### PSAS, LIPRF #### [facility] [address] [place] [address] [employer] Operator: Josh Brown MD Sodium [Moles/Vol] 137 mmol/L Normal 135-144 [facility] Comment on above: Performed By: #### C VALERY MILES, CP #### [address] [place] [place] [address] [employer] Operator: Eddie Jones MD #### OSWALDO, LIPRF #### [address] [address] [employer] Operator: Josh Brown MD Staging: Normal [facility] Comment on above: Result Comment: Stag e 1: Some kidney damage normal GFR Stage 2: Mild kidney damage GFR 60-89 Stage 3: Moderate kidney damage GFR 30-59 Stage 4: Severe kidney damage GFR 15-29 Stage 5: Severe kidney damage GFR <15 ESRD - chronic treatment by dialysis or transplant Performed By: #### C VALERY MILES, CP #### [address] [place], [place] [address] [employer] Operator: Eddie Jones MD #### PSAMinerva, LIPRF #### [facility] [address] [place] [address] [employer] Operator: Josh Brown MD Urea nitrogen [Mass/Vol] 24 mg/dL High 6-20 [facility] Comment on above: Performed By: #### C VALERY MILES, CP #### [address] [place], [place] [id number] [employer] Operator: Eddie Jones MD #### PSAS, LIPRF #### [address] [address] [employer] Operator: Josh Brown MD Comprehensive Metabolic Pane lOrdered By: Alma Robles on 03-14-2021 Albumin [Mass/Vol] 4.8 g/dL 3.5 - 5.2 g/dL [employer] Phone: Albumin/Globulin [Mass ratio] 1.7 {ratio} [employer] Phone: ALP (Bld) [Catalytic activity/Vol] 67 U/L 40 - 129 U/L [employer] Phone: ALT [Catalytic activity/Vol] 29 U/L 5 - 41 U/L [employer] Phone: Anion gap [Moles/Vol] 11 mmol/L 9 - 17 mmol/L [employer] Phone: AST [Catalytic activity/Vol] 35 U/L <40 [employer] Phone: Bilirubin [Mass/Vol] 1.27 mg/dL High 0.3 - 1 .2 mg/dL [employer] Phone: Calcium [Mass/Vol] 9.6 mg/dL 8.6 - 10. 4 mg/dL [employer] Phone: Chloride [Moles/Vol] 100 mmol/L 98 - 10 7 mmol/L [employer] Phone: CO2 [Moles/Vol] 26 mmol/L 20 - 31 mmol/L [employer] Phone: Creatinine [Mass/Vol] 0.89 mg/dL 0.70 - 1.20 mg/dL [employer] Phone: Free PSA/Total PSA [Mass fraction] 7.6 g/dL 6.4 - 8.3 g/dL [employer] Phone: GFR >60 >60 mL/min [employer] Phone: GFR Non- >60 >60 mL/min [employer] Phone: Glucose [Mass/Vol] 92 mg/dL 70 - 99 mg/dL [facility] [employer] Work Phone: Interpretation and review of laboratory results Abnormal [facility] Phone: Potassium [Moles/Vol] 4.1 mmol/L 3.7 - 5.3 mmol/L [facility] Phone: Sodium [Moles/Vol] 137 mmol/L 135 - 144 mmol/L [facility] Phone: Urea nitrogen (BldV) [Mass/Vol] 24 mg/dL High 6 - 20 mg/dL [facility] Phone: Urea nitrogen/Creatinine (Bld) [Mass ratio] 27 High [facility] Phone: [facility] Phone: EKG 12 LeadOrdered By: Ella Robles on 03-14-2021 Atrial Rate 41 BPM [facility] Work Phone: P [place] 50 degrees [facility] Phone: P-R Interval 164 ms [facility] Phone: Q-T Interval 514 ms [facility] Phone: QRS Duration 102 ms [facility] Phone: QTc Calculation (Bazett) 424 ms [facility] Phone: R [place] 55 degrees [facility] Phone: T Palermo 37 degrees [employer] Phone: Ventricular Rate 41 BPM [employer] Phone: Marked sinus bradyca rdia Possible Left atrial enlargement Abnormal ECG When compared with ECG of 15-MAY-2020 08:54, No significant change was found Confirmed by Nicolás Hernandez MD ([id number]) on 03/14/2021 9:55:55 PM [employer] Phone: Dylan, Mhpn Incoming E kg Results From [facility] [place] - 03/14/2021 9:56 PM EDT Marked sinus bradycardia Possible Left atrial enlargement Abnormal ECG When compared with ECG of 15-MAY-2020 08:54, No significant change was found Confirmed by David LOVE, Nicolás ([id number]) on 03/14/2021 9:55:55 PM [employer] Phone: [employer] Phone: Laboratory - Chemistry and C hemistry - challengeOrdered By: Alma Robles on 03-14-2021 GFR/1.73 sq M.predicted MDRD (S/P/Bld) [Vol rate/Area] [employer] Phone: Comment on above: Average GFR for 40-4 9 years old: 99 mL/min/1.73sq m Chronic Kidney Disease: <60 mL/min/1.73sq m Kidney failure: <15 mL/min/1.73sq m eGFR calculated using average adult body mass. Additional eGFR calculator available at: http://www.BeMyEye/multiple_crcl_2012.htm Stage 1: Some kidney damage normal GFR Stage 2: Mild kidney damage GFR 60-89 Stage 3: Moderate kidney damage GFR 30-59 Stage 4: Severe kidney damage GFR 15-29 Stage 5: Severe kidney damage GFR <15 ESRD - chronic treatment by dialysis or transplant Lipid Prof, Fastingon 2020 Cholesterol,VLDL NOT REPORTED Normal 11-24 [facility] Comment on above: Performed By: #### C BC, OBN, CP #### [facility] [address] [place] [address] [employer] Operator: Eddie Jones MD #### PSAS, LIPRF #### [facility] [employer] [address] [place] [address] [employer] Operator: Josh Brown MD Lipid, FastingOrdered By: Christi Robles on 03-14-2021 Cholesterol [Mass/Vol] 193 mg/dL <200 [employer] Phone: Comment on above: Cholesterol Guidelines: <200 Desirable 200-240 Borderline >240 Undesirable Cholesterol in HDL [Mass/Vol] 90 mg/dL >40 [employer] Phone: Comment on above: HDL Guidelines: <40 Undesirable 40-59 Borderline >59 Desirable Cholesterol in LDL [Mass/Vol] 97 mg/dL 0 - 130 mg/dL [employer] Phone: Comment on above: LDL Guidelines: <100 Desirable 100-129 Near to/above Desirable 130-159 Borderline >159 Undesirable Direct (measured) LDL and calculated LDL are not interchangeable tests. Cholesterol in VLDL [Mass/Vol] NOT REPORTED 1 - 30 mg/dL [employer] Phone: Cholesterol.total/Ch olesterol in HDL [Mass ratio] 2.1 {ratio} <5 [employer] Phone: Triglyceride, Fasting 31 mg/dL <150 [employer] Phone: Comment on above: Triglyceride Guidelines: <150 Desirable 150-199 Borderline 200-499 High >499 Very high Based on AHA Guidelines for fasting triglyceride, July 2012. [employer] Phone: Occult Blood, Fecalon 2020 Occult Blood 1 Negative Normal NEG [facility] Comment on above: Performed By: #### C GINGER, OBN, CP #### [facility] [address] [place] [address] [place] [address] [employer] Operator: Eddie Jones MD #### OSWALDO, LIPRF #### [facility] [address] [place] [address] [employer] Operator: Josh Brown MD Specimen 1 Date 03/14/21 Normal [facility] Comment on above: Performed By: #### C GINGER OBN, CP #### [facility] [address] [place] [address] [place] [address] [employer] Operator: Eddie Jones MD #### PSAS, LIPRF #### [address] [address] [employer] Operator: Josh Brown MD Specimen 1 Time 0811 Normal [facility] Comment on above: Performed By: #### C BC, OBN, CP #### [facility] [address] [place] [address] [place] [address] [employer] Operator: Eddie Jones MD #### PSAS, LIPRF #### [address] [address] [employer] Operator: Josh Brown MD Occult Blood 2 NOT REPORTED Normal NEG [facility] Comment on above: Performed By: #### C BC OBN, CP #### [facility] [address] [place] [address] [place] [address] [employer] Operator: Eddie Jones MD #### PSAS, LIPRF #### [address] [address] [employer] Operator: Josh Brown MD Occult Blood 3 NOT REPORTED Normal NEG [facility] Comment on above: Performed By: #### C GINGER OBN, CP #### [facility] [address] [place] [address] [place] [address] [employer] Operator: Eddie Jones MD #### PSAS, LIPRF #### [address] [address] [employer] Operator: Josh Brown MD Specimen 2 Date NOT REPORTED Normal [facility] Comment on above: Performed By: #### C GINGER OBN, CP #### [facility] [address] [place] [address] [place] [address] [employer] Operator: Eddie Jones MD #### PSAS, LIPRF #### [address] [address] [employer] Operator: Josh Brown MD Specimen 2 Time NOT REPORTED Normal [facility] Comment on above: Performed By: #### C BC, OBN, CP #### [facility] [address] [place], [place] [address] [employer] Operator: Eddie Jones MD #### PSAS, LIPRF #### [facility] [address] [place] [address] [employer] Operator: Josh Brown MD Specimen 3 Date NOT REPORTED Normal [facility] Comment on above: Performed By: #### C BC, OBN, CP #### [facility] [address] [place], [place] [address] [employer] Operator: Eddie Jones MD #### PSAS, LIPRF #### [address] [address] [employer] Operator: Josh Brown MD Specimen 3 Time NOT REPORTED Normal [facility] Comment on above: Performed By: #### C BC, OBN, CP #### [facility] [address] [place] [address] [address]. [place], [place] [id number] [employer] Operator: Eddie Jones MD #### PSAS, LIPRF #### [address] [address] [employer] Operator: Josh Brown MD PSA screeningOrdered By: Zainab Robles on 03-14-2021 [facility] Work Phone: Blood Occult Stool Screen #1 on 05-16-2020 Date, Stool #1 UNKNOWN [facility] [place] Date, Stool #2 NOT REPORTED [facility] [place] Date, Stool #3 NOT REPORTED [facility] [place] Hemoglobin.gastroint estinal spec 1 Ql (Stl) Negative NEGATIVE [facility] [place] Hemoglobin.gastroint estinal spec 2 Ql (Stl) NOT REPORTED NEGATIVE [facility] [place] Hemoglobin.gastroint estinal spec 3 Ql (Stl) NOT REPORTED NEGATIVE [facility] [place] Time, Stool #1 UNKNOWN [facility] [place] Time, Stool #2 NOT REPORTED [facility] [place] Time, Stool #3 NOT REPORTED [facility] [place] CBCon 05-15-2020 Erythrocyte distribution width (RBC) [Ratio] 13.0 % 11.8 - 14.4 % [place] Hematocrit (Bld) [Volume fraction] 46.3 % 40.7 - 50.3 % [place] Hemoglobin (Bld) [Mass/Vol] 15.3 g/dL 13 - 17 g/dL [place] MCH (RBC) [Entitic mass] 31.6 pg 25.2 - 33.5 pg [place] MCHC (RBC) [Mass/Vol] 33.0 g/dL 28.4 - 34.8 g/dL [place] MCV (RBC) [Entitic vol] 95.7 fL 82.6 - 102.9 fL [place] Platelet mean volume (Bld) [Entitic vol] 9.2 fL 8.1 - 13.5 fL [place], [place] Platelets (Bld) [#/Vol] 330 10*3/uL [place] RBC (Bld) [#/Vol] 4.84 10*6/uL 4.21 - 5.7 7 m/uL [place] WBC (Bld) [#/Vol] 0.0 10*3/uL 0.0 per 10 0 WBC [place] WBC (Bld) [#/Vol] 5.5 10*3/uL [place] Comprehensive Metabolic Pane bety 05-15-2020 Albumin [Mass/Vol] 4.8 g/dL 3.5 - 5.2 g/dL [place] Albumin/Globulin [Mass ratio] 1.7 {ratio} [place] ALP [Catalytic activity/Vol] 52 U/L 40 - 129 U/L [place] ALT [Catalytic activity/Vol] 27 U/L 5 - 41 U/L [place] Anion gap [Moles/Vol] 10 mmol/L 9 - 17 mmol/L [place] AST [Catalytic activity/Vol] 33 U/L <40 [place] Bilirubin Ql (U) 0.86 mg/dL 0.3 - 1.2 mg/dL [place] Bun/Cre Ratio 26 [place] Calcium [Mass/Vol] 9.7 mg/dL 8.6 - 10. 4 mg/dL [place] Chloride [Moles/Vol] 98 mmol/L 98 - 10 7 mmol/L [place] CO2 [Moles/Vol] 26 mmol/L 20 - 31 mmol/L [place] Creatinine [Mass/Vol] 0.8 mg/dL 0.7 - 1.2 mg/dL [place] GFR >60 >60 mL/min [place] GFR Non- >60 >60 mL/min [place] Glucose [Mass/Vol] 97 mg/dL 70 - 99 mg/dL [place], [place] Interpretation and review of laboratory results Abnormal [place] Potassium [Moles/Vol] 4.1 mmol/L 3.7 - 5.3 mmol/L [place] Protein [Mass/Vol] 7.7 g/dL 6.4 - 8.3 g/dL [place] Sodium [Moles/Vol] 134 mmol/L Low 135 - 144 mmol/L [place] Urea nitrogen [Mass/Vol] 21 mg/dL High 6 - 20 mg/dL [place] Lipid Panelon 05-15-2020 Cholesterol [Mass/Vol] 190 mg/dL <200 [place] Comment on above: Cholesterol Guidelines: <200 Desirable 200-240 Borderline >240 Undesirable Cholesterol in HDL [Mass/Vol] 96 mg/dL >40 [place] Comment on above: HDL Guidelines: <40 Undesirable 40-59 Borderline >59 Desirable Cholesterol in LDL [Mass/Vol] 87 mg/dL 0 - 130 mg/dL [place] Comment on above: LDL Guidelines: <100 Desirable 100-129 Near to/above Desirable 130-159 Borderline >159 Undesirable Direct (measured) LDL and calculated LDL are not interchangeable tests. Cholesterol in VLDL [Mass/Vol] NOT REPORTED 1 - 30 mg/dL [place] Cholesterol.total/Ch olesterol in HDL [Mass ratio] 2 {ratio} <5 [place] Triglyceride [Mass/Vol] 37 mg/dL <150 [place] Comment on above: Triglyceride Guidelines: <150 Desirable 150-199 Borderline 200-499 High >499 Very high Based on AHA Guidelines for fasting triglyceride, July 2012. Metabolic Panelon 05-15-2020 GFR/1.73 sq M predicted among non-blacks MDRD (S/P/Bld) [Vol rate/Area] [place] Comment on above: Stage 1: Some kidney damage normal GFR Stage 2: Mild kidney damage GFR 60-89 Stage 3: Moderate kidney damage GFR 30-59 Stage 4: Severe kidney damage GFR 15-29 Stage 5: Severe kidney damage GFR <15 ESRD - chronic treatment by dialysis or transplant Average GFR for 40-4 9 years old: 99 mL/min/1.73sq m Chronic Kidney Disease: <60 mL/min/1.73sq m Kidney failure: <15 mL/min/1.73sq m eGFR calculated using average adult body mass. Additional eGFR calculator available at: http://www.BeMyEye/multiple_crcl_2011.htm Vital Signs Date Time Vital Sign Value Performing Clinician Facility 07-25-2024 10: Body height 177.8 cm [facility] 07-25-2024 10:040 Body mass index (BMI) [Ratio] 28.8 kg/m2 [facility] 07-25-2024 10:040 Body weight 91.17 kg [facility] 07-25-2024 10:040 Diastolic blood pressure 86 mm[Hg] [facility] 07-25-2024 10:040 Heart rate 54 /min [facility] 07-25-2024 10:040 Respiratory rate 12 /min [facility] 07-25-2024 10:040 Systolic blood pressure 127 mm[Hg] [facility] 07-01-2023 10:040 Body height 177.8 cm Cristhian Ball Other [employer] Other 07-01-2023 10:15-0400 Body mass index (BMI) [Ratio] 28.89 kg/m2 Cristhian Rivas Other [employer] Other 07-01-2023 10:15-0400 Body weight 91.36 kg Cristhian Rivas Other [employer] Other 07-01-2023 10:15-0400 Diastolic blood pressure 80 mm[Hg] Cristhian Rivas Other [employer] Other 07-01-2023 10:15-0400 Respiratory rate 12 /min Cristhian Rivas Other [employer] Other 07-01-2023 10:15-0400 Systolic blood pressure 135 mm[Hg] Cristhian Rivas Other [employer] Other Encounters Encounter Date Encounter Type Care Provider Facility Start: 07-25-2024 End: 07-25-2024 ambulatory [facility] Work Phone: Start: 07-25-2024 End: 07-25-2024 Encounter for general adult medical examination without abnormal findings [facility] Start: 07-25-2024 End: 07-25-2024 Patient encounter procedure [facility] Physician [facility] Work Phone: Start: 07-23-2024 Patient encounter status [facility] Start: 07-22-2024 Non-patient / Non-visit [facility] Physician [facility] Work Phone: Start: 09-09-2023 End: 09-09-2023 ambulatory Cristhian Rivas Other [employer] Other Start: 09-09-2023 Telephone encounter Cristhian Rivas [facility] [employer] Start: 07-12-2023 End: 09-17-2023 ambulatory Cristhian Rivas Other [employer] Other Start: 07-12-2023 Telephone encounter Cristhian Rivas [facility] Start: 07-01-2023 End: 07-01-2023 ambulatory Cristhian Rivas Other [employer] Other Start: 07-01-2023 Encounter for genera l adult medical examination without abnormal findings Cristhian Rivas [facility] Start: 07-01-2023 Periodic preventive med est patient 40-64yrs Cristhian Rob [facility] Start: 02-11-2023 End: 02-11-2023 ambulatory Cristhian Rivas Other [employer] Other Start: 02-11-2023 Office outpatient vi sit 15 minutes Cristhian Rivas [facility] Start: 08-07-[address] CRISTHIAN RIVAS Facili ty:[facility]1 Start: 02-10-2022 End: 02-11-2022 ambulatory [facility] Start: 02-10-2022 End: 02-10-2022 ambulatory [facility] Start: 02-10-2022 End: 02-10-2022 Subsequent hospital visit by physician [facility]ivas DO [facility] Start: 12-04-2021 End: 12-04-[address] BRANDON STOLL Facility:[facility] Start: 11-30-[address] BRANDON STOLL Facilit y:[facility]1 Start: 11-29-2021 Encounter for preprocedural laboratory examination DR BRANDON STOLL [facility] Start: 11-27-2021 End: 11-28-[address] BRANDON STOLL Facility:[facility] Start: 11-27-2021 End: 11-28-2021 Encounter for preprocedural laboratory examination DR BRANDON STOLL Facility:[facility] Start: 10-24-2021 End: 10-24-2021 Emergency department patient visit CRISTHIAN RIVAS [facility] Start: 09-06-2021 End: 09-06-[address] CRISTHIAN RIVAS Facility:[facility] Start: 04-10-2021 End: 04-11-2021 ambulatory [facility] Start: 04-10-2021 End: 04-10-2021 Subsequent hospital visit by physician Alicia Regular [employer] [facility] Stress Lab Comment on above: Pre-employment exami nation Start: 03-14-2021 End: 03-15-2021 ambulatory [facility] Start: 03-14-2021 End: 03-14-2021 Subsequent hospital visit by physician Cristhian Rivas DO Work Phone: [facility] Laboratory Start: 03-14-2021 End: 03-14-2021 ambulatory [facility] Start: 03-14-2021 End: 03-14-2021 Subsequent hospital visit by physician Cristhian Rivas DO Work Phone: [facility] EKG Start: 05-16-2020 End: 05-16-2020 Subsequent [facility] Start: 05-15-2020 End: 05-15-2020 Subsequent hospital visit by physician Cristhian Rivas [facility] Laboratory Start: 05-15-2020 End: 05-15-2020 Subsequent [facility] Procedures Date Procedure Procedure Detail Performing Clinician Start: 02-10-2022 Ecg routine ecg w/le ast 12 lds w/i&r Alma Robles [employer] MANAGER - PUBLIC HEALTH NURSE Work Phone: Start: 03-14-2021 PSA screening Cristhian Rivas DO Work Phone: Comment on above: The Marybeth ECLIA as say is used. Results obtained with different assay methods cannot be used interchangeably. Start: 03-14-2021 Ecg routine ecg w/le ast 12 lds w/i&r Alma Robles PLANT CULTURE MANAGER - PUBLIC HEALTH NURSE Work Phone: Start: 03-14-2021 Comprehensive metabo lic panel Alma Robles [employer] CULTURE MANAGER - PUBLIC HEALTH NURSE Work Phone: Start: 03-14-2021 Lipid panel Alma meek [employer] CULTURE MANAGER - PUBLIC HEALTH NURSE Work Phone: Start: 03-14-2021 Virus centrifuge enh ncd id imfluor stain ea Alma Robles PL[employer] CULTURE MANAGER - PUBLIC HEALTH NURSE Work Phone: Start: 05-16-2020 BLOOD OCCULT STOOL S CREEN #1 Alma Robles Work Phone: Start: 05-15-2020 Ecg routine ecg w/le ast 12 lds w/i&r Alma Robles Work Phone: Start: 05-15-2020 Blood count complete automated Alma Robles Work Phone: Start: 05-15-2020 Comprehensive metabo lic panel Alma Robles Work Phone: Start: 05-15-2020 Lipid panel Alma Carmichael latia Work Phone: Plan of Treatment Date Care Activity Detail Author Start: 03-14-2026 Lipid panel Lipid screen [facility] Start: 05-15-2025 Lipid panel Lipid screen [place] Start: 02-16-2024 Lipid panel Lipid screen [place] Start: 02-10-2023 Screening for malign ant neoplasm of colon [facility] Start: 06-26-2022 Influenza vaccination Flu vacc ine (Season Ended) [facility] Start: 06-26-2021 Influenza vaccination Flu vacc ine (Season Ended) [facility] Work Phone: Start: 06-26-2020 Influenza vaccination Flu vaccine (# 1) [place] Start: 02-27-2017 Screening for malign ant neoplasm of colon [facility] Start: 02-27-1991 DTaP/Tdap/Td vaccine (1 - Tdap) DTaP/Tdap/Td vaccine (1 - Tdap) [facility] Start: 02-27-1987 HIV screening HIV screen [facility] Start: 1984 COVID-19 Vaccine (1) COVID-19 Vaccin e (1) [facility] Work Phone: Start: 1984 Depression Screen Depression Screen [facility] Start: 02-27-1977 COVID-19 Vaccine (1) COVID-19 Vaccin e (1) [facility] Start: 1972 Hepatitis C screening Hepatitis C sc reen [facility] EKG 12 Lead EKG 12 Lead ECG Routine 05/15/2020 8:54 AM EDT [place] Payers Date Payer Category Payer Unknown [id number] 2018 Unknown [employer] [facility] [id number] 2018-Present Indemnity [id number] 1972 Unknown [id number] 1972 Unknown [id number] 1972 Unknown [id number] 1972 Unknown [id number] 1972 Unknown [id number] 1972 Unknown [id number] 1972 Unknown [id number] 1972 Unknown [id number] 1972 Unknown [id number] 1959 Unknown [id number] 1959 Unknown [id number] 1959 Unknown [id number] Social History Date Type Detail Facility Start: 12-21-2014 End: 07-12-2023 Tobacco smoking status NHIS Never smoker [place] Start: 12-21-2014 End: 10-24-2021 Alcohol intake Current drinker of alcohol (finding) [facility] [employer] IMELDA ADAMS Start: 1970 Sex Assigned At Not on file M bess [employer] IMELDA ADAMS Start: 12-21-2014 End: 10-24-2021 Alcohol intake [employer] Work Phone: Sex Assigned At Sex Assigned At Bir th [employer] Other Start: 1970 Sex Assigned At Male F [facility] Clinical Notes 04-10-2021 to 07-01-2023 Note Date & Type Note Facility 07-01-2023 Evaluation note Encounter Date Diagnosis Assessment Notes Jun, Wellness examination (ICD-10 - Z00.00) Healthy diet and exercise. Reviewed age-appropriat e preventive testing recommended. Work related labs and preventive testing completed. - asked to have him email to the office Jun, Sprain of right rotator cuff capsule, initial encounter (ICD-10 - S43.421A) ROM exercised, ice/heat and rest. 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 Reviewed age-appropriate preventive testing recommended. Work related labs and preventive testing completed. - asked to have him email to the office Jun, Sprain of right rotator cuff capsule, initial encounter (ICD-10 - S43.421A) ROM exercised, ice/heat and rest. 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 Jan, Allergic contact dermatitis due to plants, except food (ICD-10 - L23.7) Cool compresses, valdo/benadryl [employer] Other 02-09-2022 NoteOP Note PREOPERATIVE DIAGNOSIS: Left inguinal hernia. POSTOPERATIVE DIAGNOSIS: Direct left inguinal hernia and cord lipomas. PROCEDURE: Left inguinal herniorrhaphy with Bard mesh polypropylene patch. SURGEON: Brandon Stoll M.D. ANESTHESIA: General laryngeal mask airway. ESTIMATED BLOOD LOSS: Less than 10 mL. INDICATIONS AND CONSENT: Patient is a 51-year-old male, history of previous right inguinal hernia repair, who developed an acute left inguinal hernia per lifting a patient. On exam, the hernia is reducible. Indications, risks, benefits and alternatives of proceeding with herniorrhaphy with mesh insertion were explained extensively to the patient, including risks of bleeding, infection, scarring, pain, nerve injury, testicular injury, blood clot, pulmonary embolus, heart attack, anesthetic complications, need for further surgery, mesh removal. All of his questions were answered. Informed consent was obtained. PROCEDURE: Patient brought to the operating room, placed in the supine position. General anesthesia was induced. He was prepped and draped in the usual sterile fashion. Left groin incision was made in the area of the skin crease and carried down through subcutaneous tissue using sharp dissection as well as electrocautery. Musa's fascia was divided. External oblique, which was attenuated, was opened along the direction of its fibers, down through the external inguinal ring. Cord structures were mobilized and retracted with the Gunnar drain. There was a noted to be a direct hernia as well as cord lipomas. These were freed up from the cord structures and reduced back through the internal ring or through the floor of the inguinal canal respectively. The direct defect was then imbricated using 2-0 Prolene sutures. The enlargement of the internal ring was closed as well with additional 2-0 Prolene sutures. The wound was irrigated with good hemostasis. The Bard polypropylene patch was then trimmed. A keyhole was created. It was placed in the floor of the inguinal canal. The arms were placed around the cord structures. It was then secured circumferentially using interrupted 3-0 Vicryl sutures. Care was taken to avoid undo tension on the cord structures. The wound was irrigated with antibiotic saline. The external oblique was then closed with a running 3-0 Vicryl suture. The subcutaneous tissues were infiltrated with Exparel solution. Musa's fascia was then re-approximated using interrupted 3-0 Monocryl suture. The skin was then closed with a running 4-0 subcuticular Monocryl suture and skin glue. Sterile pressure dressing was applied. Sponge and needle counts were correct x2 per nursing personnel. Patient tolerated procedure, was extubated, sent to recovery room in good condition. CC: Dr. Jovanny Rivas [facility] Signed and Approved by: DR BRANDON STOLL . 12/09/2021 18:42:00[facility]06-16-2021 History of Present illness Narrative* Archana Lisa - 04/10/2021 11:00 AM EDT Instructed patient on the benefit and protocol of a stress test. documented in this encounter[employer] [employer] Work Phone: evaluation note* Diagnosis Pre-employment examination Health examination of defined subpopulation documented in this encounter [employer] Work Phone: evaluation noteNo [facility] [employer] Other Evaluation note* Diagnosis Onset Date Resolution Status Screening for colon cancer a cute Screening PSA (prostate specific antigen) acute Wellness examination [facility] Work Phone: History general Narrative - Reported* Type Description Date Medical History HSV-2 (herpes simplex virus 2) i nfection Medical History Hearing loss of both ears due to cerumen impaction Medical History Body mass index (BMI) of 25.0 to 29.9 Medical History Left upper quadrant abdominal pa in Medical History Inguinal hernia of r ight side without obstruction or gangrene Medical History Allergic contact malik matitis due to plants, except food Surgical History REPAIR, INGUINAL HERNIA, SLIDIN G Surgical History VASECTOMY 2002 Surgical History EXCISION INCLUSION CYST RIGHT S CAPULA 01/2004 Hospitalization History SEE SURGICAL HX [employer] Other Reason for referral (narrative)* Reason Referral for screeni ng colonoscopy Diagnosis 1 Screening for colon cancer (Z12.11) Referral Organization [facility] Jeronimo cornejo Referring Provider First Name Cristhian Referring Provider Last Name Rob Referring Provider Specialty Internal Me dicine Referred Organization [facility] Referred Provider Brandon Stoll Referred Address [address], [place],[address] Referred Provider Specialty Surgery Referral Priority Routine General Notes Mr. Hernandez is an as ymptomatic, low risk patient. He denies any family hx for polyps or colon cancer. He denies any change in appetite, weight or bowel habits. He denies heartburn or dysphagia. He denies abdominal pain, melena or hematochezia. [employer] Other Reason for visit NarrativeGENERAL SURG REFERRAL UPDATE [employer] Other Advance Directives Documents on File Type Date Recorded Patient Network Support Technician Expl anation Advance Directives and Living Will Power of Airway Controller Documents on File Type Date Recorded Patient Network Support Technician Expl anation ACP-Advance Directive ACP-Power of Airway Controller Documents on File Type Date Recorded Patient Network Support Technician Expl anation ACP-Advance Directive ACP-Power of Airway Controller Advance Directive Response Recorded Date/ Time Advance Directives No June 10:08am Reason for Referral Status Reason Specialty Diagnoses / Procedures Referre d By Contact Referred To Contact Closed Cardiology Diagnoses Pre-employment examination Procedures CARDIAC STRESS TEST EXERCISE ONLY Alma Robles APRN - PUBLIC HEALTH NURSE [address] [place] [address] Summary Purpose Family History Relationship Condition Age at Onset Recorded Date/T siri mother Malignant neoplasm of breast Unknown Malignant neoplasm Unknown Diabetes mellitus Unknown Chief Complaint and Reason for Visit Chief Complaint bp concerns Reason for Visit Screening for colon cancer Screening PSA (prostate specific antigen) Wellness examination Additional Source Comments Reason for Visit (unrecogniz ed section and content) Status Reason Specialty Diagnoses / Procedures Referre d By Contact Referred To Contact Closed Cardiology Diagnoses Pre-employment examination Procedures CARDIAC STRESS TEST EXERCISE ONLY Alma Robles APRN - PUBLIC HEALTH NURSE [address] [place] [address] Care Teams (unrecognized sec tion and content) Ladies Locker Room Attendant Relationship Specialty Start Date End Date Cristhian Rivas DO [address] [facility] [place] [address] PCP - General 04/05/13 Team Status: Active Member Role Status Dates Cristhian Rivas DO Primary Care Provider Active Team Status: Active Member Role Status Dates Cristhian Rob Primary Care Provide r, Attending Provider Active Start: July 22, 2024 Team Status: Inactive Member Role Status Dates Cristhian Rivas Primary Care Provide r, Attending Provider Active Start: July 25, 2024 End: July 25, 2024 (unrecognized sect ion and content) No Status Records FoundNo Status Records FoundNo Status Records Found INFORMATION SOURCE (unrecogn ized section and content) DATE CREATED AUTHOR 02/11/2022 [facility] DATE CREATED AUTHOR AUTHOR'S ORGANIZ ATION 08/05/2022 [facility] DATE CREATED AUTHOR AUTHOR'S ORGANIZ ATION 07/19/2023 [facility] Goals (unrecognized section and content) Goals may be documented in a n alternate section FOR RECORDS PERTAINING TO PATIENTS WHO ARE OR HAVE BEEN ENROLLED IN A CHEMICAL DEPENDENCY/SUBSTANCEABUSE PROGRAM, SOME INFORMATION MAY BE OMITTED. This clinical summary was aggregated from multiple sources. Caution should be exercised in using it in the provision of clinical care. This summary normalizes information from multiple sources, and as a consequence, information in this document may materially change the coding, format and clinical context of patient data. In addition, data may be omitted in some cases. CLINICAL DECISIONS SHOULD BE BASED ON THE PRIMARY CLINICAL RECORDS. [employer] [facility] provides no warranty or guarantee of the accuracy or completeness of information in this document.
== END 2024-07-27 12:31 | disposition home or self-care (01) ==
LOC: CT 12:30
PROVIDERS: PCP Internal Medicine; Visit Provider Internal Medicine
DX: R51.9 Headache, unspecified (principal); R55 Syncope and collapse
CPT/HCPCS: 70450; 93242